=== PATIENT | female | born 1940 | race Caucasian/White ===

== ENCOUNTER → 2018-03-20 | Outpatient (CLI) | payer MEDICARE, OTHER ==
[~2018-03-20] MED LIST: CIPRO500 M1 PO
== END ==
LOC: M.ULTRA 12:27
DX: M79.89 Other specified soft tissue disorders (principal); R60.9 Edema, unspecified; Z86.718 Personal history of other venous thrombosis and embolism

== ENCOUNTER 2018-03-23 20:38 | Emergency (ER) | payer MEDICARE, OTHER ==
[~2018-03-23] VITALS: Ht 152.4 cm; Wt 73.5 kg
[2018-03-23 21:20] LABS: HEMATOCRIT 33.2 % (37.0-47.0); HEMOGLOBIN 10.6 gm/dL (12.0-15.0); MCH 27.7 pg (26.0-34.0); MCV 86.5 fL (80.0-100.0); MPV 7.7 fl. (7.2-11.1); NUCLEATED RBCS 0 /100WBC; PLATELET COUNT* 260 thou/uL (150-400); RBC 3.84 mil/uL (4.20-5.00); RDW-CV 18.7 % (10.5-14.5); WBC 11.3 thou/uL (4.0-11.0)
[2018-03-23 21:30] LABS: CALCIUM 8.6 mg/dL (8.5-10.1); CREATININE 1.3 mg/dL (0.6-1.3); POTASSIUM 4.3 mmol/L (3.5-5.1)
[2018-03-23 21:31] LABS: INFLUENZA A ANTIGEN None Detected (None Detect); INFLUENZA B ANTIGEN None Detected (None Detect)
[2018-03-23 21:35] LABS: ALBUMIN 3.4 g/dL (3.4-5.0); TOTAL BILIRUBIN 0.2 mg/dL (<0.1-1.0); TOTAL PROTEIN 6.5 g/dL (6.4-8.2)
[2018-03-23 21:48] LABS: ABSOLUTE LYMPHOCYTES 1.1 thou/uL (0.8-5.3); ABSOLUTE MONOCYTES 0.3 thou/uL (0.0-1.2); ABSOLUTE NEUTROPHILS 9.8 thou/uL (1.6-8.1); ATYPICAL LYMPHS 1 %
[2018-03-23 21:49] LABS: PLATELET ESTIMATE ADEQUATE
[2018-03-23 22:04] LABS: URINE BILIRUBIN NEGATIVE (Negative); URINE BLOOD TRACE (Negative); URINE CLARITY CLEAR; URINE COLOR YELLOW; URINE GLUCOSE-RANDOM NEGATIVE (Negative); URINE KETONES NEGATIVE (Negative); URINE LEUKOCYTES-REFLEX 1+ (Negative); URINE NITRITE-REFLEX NEGATIVE (Negative); URINE PROTEIN NEGATIVE (Negative); URINE SPECIFIC GRAVITY 1.015 (1.005-1.030); URINE UROBILINOGEN 0.2 E.U./dl (0.2-1.0)
[2018-03-23 22:20] LABS: BACTERIA-REFLEX >30 Many /HPF (None Seen); CASTS None Seen /LPF (None Seen); CRYSTALS None Seen /LPF (None Seen); SQUAMOUS 4-10 Moderate /LPF (0-3); URINE RBC None Seen /HPF (0-2); URINE WBC-REFLEX 6-15 Few /HPF (0-5)
[2018-03-23] MEDS ORDERED: CIPRO500 M1 PO (23:09)
[2018-03-24 00:15] VITALS: BP 134/62
== END 2018-03-24 00:17 | disposition home or self-care (01) ==
LOC: M.ERS 20:38
PROVIDERS: Emergency Medicine
DX: N39.0 Urinary tract infection, site not specified (principal); E78.5 Hyperlipidemia, unspecified; G89.29 Other chronic pain; M79.606 Pain in leg, unspecified; E11.22 Type 2 diabetes mellitus with diabetic chronic kidney disease; N18.9 Chronic kidney disease, unspecified; Z90.49 Acquired absence of other specified parts of digestive tract; Z86.718 Personal history of other venous thrombosis and embolism; Z88.5 Allergy status to narcotic agent

== ENCOUNTER 2018-06-07 08:26 | Inpatient (IN) | payer MEDICARE, OTHER ==
[~2018-06-07] VITALS: Ht 157.5 cm; Wt 73.5 kg
--- NOTE | ~2018-06-07 | PROC ---
[address] [address] PROCEDURE REPORT Name: MURALI BIRD Room: [address] IN .R.#: [id number] Admission: 06/07/18 Attend Phys: Siddhartha Ibanez MD Discharge: 06/13/18 Date of : 38 Report #: [id number] THIS REPORT FOR: //name// For GI report, please see the Provation report in Perceptive 7. By: 0846Medical Records Staff TIFFANIE /DAY
[2018-06-07 08:37] VITALS: BP 115/67
[2018-06-07] MEDS ORDERED: ZYLOPRIM300 MG PO (08:39)
[2018-06-07] MEDS ORDERED: NORVASC5 M1 PO (08:40)
[2018-06-07] MEDS ORDERED: ASPIRIN300 MG RECTAL (08:40)
[2018-06-07] MEDS ORDERED: BAYER CHEWABLE81 MG PO (08:40)
[2018-06-07] MEDS ORDERED: CALCIUM500 MG PO (08:41)
[2018-06-07] MEDS ORDERED: CARVEDILOL3.125 MG PO (08:41)
[2018-06-07] MEDS ORDERED: COZAAR 25 MG TA25 M2 PO (08:42)
[2018-06-07] MEDS ORDERED: NEURONTIN 300300 M1 PO (08:42)
[2018-06-07] MEDS ORDERED: GLUCOPHAGE XR500 MG PO (08:42)
[2018-06-07] MEDS ORDERED: PACERONE 200 M200 M1 PO (08:42)
[2018-06-07] MEDS ORDERED: PROTONIX 20 MG20 M1 PO (08:43)
[2018-06-07] MEDS ORDERED: TYLENOL EXTRA500 MG PO (08:43)
[2018-06-07] MEDS ORDERED: AMBIEN 5 MG TABL5 M1 PO (08:44)
[2018-06-07] MEDS ORDERED: LIPITOR 20 MG T20 M1 PO (08:44)
[2018-06-07 09:07] LABS: HEMATOCRIT 34.3 % (37.0-47.0); HEMOGLOBIN 10.9 gm/dL (12.0-15.0); MCH 26.7 pg (26.0-34.0); MCHC 31.7 g/dL (28.0-37.0); MCV 84.3 fL (80.0-100.0); MPV 8.1 fl. (7.2-11.1); NUCLEATED RBCS 0 /100WBC; PLATELET COUNT* 319 thou/uL (150-400); RBC 4.06 mil/uL (4.20-5.00); RDW-CV 17.6 % (10.5-14.5); WBC 16.7 thou/uL (4.0-11.0)
[2018-06-07 09:15] LABS: ANION GAP 9 mmol/L (7-16); BUN 29 mg/dL (7-18); CHLORIDE 103 mmol/L (98-107); CO2 26 mmol/L (21-32); CREATININE 1.1 mg/dL (0.6-1.3); GLUCOSE 173 mg/dL (70-99); INR 0.9; POTASSIUM 4.4 mmol/L (3.5-5.1); PROTIME 9.5 Seconds (9.20-11.50); SODIUM 138 mmol/L (136-145)
[2018-06-07 09:25] LABS: ALBUMIN 3.5 g/dL (3.4-5.0); ALKALINE PHOSPHATASE 59 U/L (46-116); LIPASE 72 U/L (73-393); NT-PRO BRAIN NAT PEPTIDE 177 pg/mL (<300); SGOT 23 U/L (15-37); SGPT 22 U/L (30-65); TOTAL BILIRUBIN 0.3 mg/dL (<0.1-1.0); TOTAL PROTEIN 6.9 g/dL (6.4-8.2); TROPONIN-I LEVEL <0.06 ng/mL (<0.06)
[2018-06-07 09:42] LABS: INFLUENZA A ANTIGEN None Detected (None Detect); INFLUENZA B ANTIGEN None Detected (None Detect)
[2018-06-07 09:51] LABS: ABSOLUTE BASOPHILS 0.2 thou/uL (0.0-0.2); ABSOLUTE EOSINOPHILS 0.2 thou/uL (0.0-0.7); ABSOLUTE LYMPHOCYTES 0.8 thou/uL (0.8-5.3); ABSOLUTE MONOCYTES 0.5 thou/uL (0.0-1.2)
[2018-06-07 09:52] LABS: HYPOCHROMASIA 1+; MICROCYTES 2+; PLATELET ESTIMATE ADEQUATE
[2018-06-07 09:53] LABS: POLYCHROMASIA 1+
[2018-06-07 09:54] LABS: TARGET CELLS Occasional
[2018-06-07 10:37] LABS: URINE BILIRUBIN NEGATIVE (Negative); URINE BLOOD NEGATIVE (Negative); URINE CLARITY CLEAR; URINE COLOR YELLOW; URINE GLUCOSE-RANDOM NEGATIVE (Negative); URINE KETONES NEGATIVE (Negative); URINE LEUKOCYTES-REFLEX 1+ (Negative); URINE NITRITE-REFLEX NEGATIVE (Negative); URINE PROTEIN NEGATIVE (Negative); URINE UROBILINOGEN 0.2 E.U./dl (0.2-1.0)
[2018-06-07 10:45] LABS: SQUAMOUS 4-10 Moderate /LPF (0-3)
[2018-06-07 10:48] LABS: CASTS None Seen /LPF (None Seen); URINE RBC None Seen /HPF (0-2); URINE WBC-REFLEX 0-5 Rare /HPF (0-5)
[2018-06-07 10:50] LABS: CRYSTALS None Seen /LPF (None Seen)
[2018-06-07 13:03] VITALS: BP 123/57
[2018-06-07 14:00] VITALS: BP 125/58
[2018-06-07 15:30] VITALS: BP 134/56
--- NOTE | 2018-06-07 16:08 | EKG ---
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 06/07/18 1608 D: 02/915 5 Saw Hood MD, FACC /EPI
[2018-06-07 20:53] VITALS: BP 130/60
[2018-06-08] VITALS: BP 90/41
[2018-06-08 04:00] VITALS: BP 103/50
[2018-06-08 04:10] LABS: ABSOLUTE EOSINOPHILS 0.1 thou/uL (0.0-0.7); ABSOLUTE LYMPHOCYTES 2.3 thou/uL (0.8-5.3); ABSOLUTE MONOCYTES 0.8 thou/uL (0.0-1.2); ABSOLUTE NEUTROPHILS 10.4 thou/uL (1.6-8.1); BASOPHILS 0.3 %; EOSINOPHILS 1.1 %; HEMATOCRIT 27.9 % (37.0-47.0); LYMPHOCYTES 16.6 %; MCH 26.6 pg (26.0-34.0); MCHC 30.9 g/dL (28.0-37.0); MCV 85.9 fL (80.0-100.0); MONOCYTES 6.1 %; NUCLEATED RBCS 0 /100WBC; POLYS 75.9 %; RBC 3.24 mil/uL (4.20-5.00); RDW-CV 17.3 % (10.5-14.5); WBC 13.7 thou/uL (4.0-11.0)
[2018-06-08 04:14] LABS: HEMOGLOBIN 8.6 gm/dL (12.0-15.0)
[2018-06-08 04:15] LABS: PLATELET COUNT* 241 thou/uL (150-400)
[2018-06-08 04:18] LABS: CALCIUM 7.8 mg/dL (8.5-10.1); POTASSIUM 3.6 mmol/L (3.5-5.1)
[2018-06-08 08:09] VITALS: BP 107/55
[2018-06-08 11:40] VITALS: BP 100/47
[2018-06-08 16:00] VITALS: BP 124/54
[2018-06-08 21:10] VITALS: BP 139/60
[2018-06-09 00:28] VITALS: BP 106/47
[2018-06-09 04:02] LABS: ABSOLUTE EOSINOPHILS 0.2 thou/uL (0.0-0.7); ABSOLUTE LYMPHOCYTES 2.1 thou/uL (0.8-5.3); ABSOLUTE MONOCYTES 0.7 thou/uL (0.0-1.2); ABSOLUTE NEUTROPHILS 6.3 thou/uL (1.6-8.1); BASOPHILS 0.5 %; EOSINOPHILS 2.6 %; HEMOGLOBIN 8.5 gm/dL (12.0-15.0); LYMPHOCYTES 22.4 %; MCH 26.7 pg (26.0-34.0); MCHC 31.5 g/dL (28.0-37.0); MCV 84.6 fL (80.0-100.0); MONOCYTES 7.8 %; MPV 7.6 fl. (7.2-11.1); NUCLEATED RBCS 0 /100WBC; PLATELET COUNT* 223 thou/uL (150-400); POLYS 66.7 %; RBC 3.19 mil/uL (4.20-5.00); RDW-CV 17.5 % (10.5-14.5); WBC 9.5 thou/uL (4.0-11.0)
[2018-06-09 04:30] LABS: CALCIUM 7.7 mg/dL (8.5-10.1); CREATININE 1.1 mg/dL (0.6-1.3); POTASSIUM 3.9 mmol/L (3.5-5.1)
[2018-06-09 05:07] VITALS: BP 134/60
[2018-06-09 08:33] VITALS: BP 133/61
[2018-06-09 11:30] VITALS: BP 134/58
[2018-06-09 16:00] VITALS: BP 147/65
[2018-06-09] MEDS ORDERED: SYNTHROID25 MC1 PO (19:14)
[2018-06-09 21:00] VITALS: BP 135/61
[2018-06-10 04:35] LABS: ABSOLUTE BASOPHILS 0.1 thou/uL (0.0-0.2); ABSOLUTE EOSINOPHILS 0.3 thou/uL (0.0-0.7); ABSOLUTE LYMPHOCYTES 2.3 thou/uL (0.8-5.3); ABSOLUTE MONOCYTES 0.7 thou/uL (0.0-1.2); BASOPHILS 0.6 %; EOSINOPHILS 4.1 %; HEMATOCRIT 29.3 % (37.0-47.0); HEMOGLOBIN 9.4 gm/dL (12.0-15.0); LYMPHOCYTES 27.4 %; MCH 26.9 pg (26.0-34.0); MCHC 32.1 g/dL (28.0-37.0); MCV 83.6 fL (80.0-100.0); MONOCYTES 8.7 %; MPV 8.4 fl. (7.2-11.1); NUCLEATED RBCS 0 /100WBC; PLATELET COUNT* 247 thou/uL (150-400); POLYS 59.2 %; RDW-CV 17.5 % (10.5-14.5); WBC 8.4 thou/uL (4.0-11.0)
[2018-06-10 04:54] LABS: CALCIUM 8.8 mg/dL (8.5-10.1); CREATININE 1.1 mg/dL (0.6-1.3); POTASSIUM 4.1 mmol/L (3.5-5.1); TOTAL BILIRUBIN 0.3 mg/dL (<0.1-1.0); TOTAL PROTEIN 5.9 g/dL (6.4-8.2)
[2018-06-10 06:07] LABS: ALBUMIN 2.6 g/dL (3.4-5.0)
[2018-06-10 08:30] VITALS: BP 139/62
[2018-06-10 12:00] VITALS: BP 135/58
[2018-06-10 15:50] VITALS: BP 89/55
[2018-06-10 16:05] VITALS: BP 127/60
[2018-06-10 21:00] VITALS: BP 151/67
[2018-06-11] VITALS: BP 106/67
[2018-06-11 04:00] VITALS: BP 125/63
[2018-06-11 08:45] VITALS: BP 137/69
[2018-06-11 11:55] VITALS: BP 106/62
[2018-06-11 15:00] VITALS: BP 136/67
[2018-06-11 20:30] VITALS: BP 114/67
[2018-06-12] VITALS: BP 135/60
[2018-06-12 04:00] VITALS: BP 111/62
[2018-06-12 04:20] LABS: ABSOLUTE EOSINOPHILS 0.1 thou/uL (0.0-0.7); ABSOLUTE LYMPHOCYTES 2.1 thou/uL (0.8-5.3); ABSOLUTE MONOCYTES 0.8 thou/uL (0.0-1.2); ABSOLUTE NEUTROPHILS 5.8 thou/uL (1.6-8.1); BASOPHILS 0.4 %; EOSINOPHILS 0.9 %; HEMATOCRIT 31.4 % (37.0-47.0); HEMOGLOBIN 10.2 gm/dL (12.0-15.0); LYMPHOCYTES 23.7 %; MCH 26.9 pg (26.0-34.0); MCHC 32.4 g/dL (28.0-37.0); MONOCYTES 9.5 %; MPV 8.1 fl. (7.2-11.1); NUCLEATED RBCS 0 /100WBC; PLATELET COUNT* 266 thou/uL (150-400); POLYS 65.5 %; RBC 3.78 mil/uL (4.20-5.00); RDW-CV 17.8 % (10.5-14.5); WBC 8.8 thou/uL (4.0-11.0)
[2018-06-12 04:30] LABS: CALCIUM 8.8 mg/dL (8.5-10.1); CREATININE 1.3 mg/dL (0.6-1.3)
[2018-06-12 05:46] LABS: POTASSIUM 3.1 mmol/L (3.5-5.1)
[2018-06-12 07:45] VITALS: BP 120/65
[2018-06-12 09:14] VITALS: BP 120/65
[2018-06-12 16:52] VITALS: BP 108/59
[2018-06-12 19:50] VITALS: BP 97/46
[2018-06-13 00:59] VITALS: BP 115/62
[2018-06-13 03:42] VITALS: BP 109/57
[2018-06-13 08:30] VITALS: BP 114/53
[2018-06-13] MEDS ORDERED: IRON325 PO (12:32)
[2018-06-13] MEDS ORDERED: VITAMIN B-12500 MCG PO (12:33)
[2018-06-13] MEDS ORDERED: LEVAQUIN 500 M500 M2 PO (12:33)
[2018-06-13 12:35] VITALS: BP 114/53
--- NOTE | 2018-06-16 15:26 | PATH ---
[address] [address] PATHOLOGY RPT PROCEDURE Name: SHANIQUA PICKETT Room: [address] IN M.R.#: [id number] Admission: 06/07/18 Date of : 38 Discharge: 06/13/18 Report #: [id number] Path Case #: [id number] [facility] Accession Number: [id number] . 01 Material submitted: . PART A: SMALL BOWEL BIOPSY FOR IRON DEFICIENCY PART B: MID ASCENDING COLON POLYP . 01 Clinical history: . None provided . 02 Diagnosis: A. Small bowel biopsy for iron deficiency: - Normal duodenal/small intestinal mucosa. . B. Mid ascending colon polyp: - Tubular adenoma, negative for high-grade dysplasia. (JCARLOS:arely; 06/13/2018) QMS/06/13/2018 . 02 Electronically signed: . Chino Nieto MD, Pathologist NPI- [id number] . 01 Gross description: . A. Received in formalin labeled "Shaniqua Pickett, small bowel biopsy for iron deficiency," are 4 segments of anderson soft tissue measuring 1.5 x 0.8 x 0.2 cm in aggregate dimensions and ranging from 0.3 to 0.6 cm in maximum dimension. The specimen is submitted entirely in cassette A1. . B. Received in formalin labeled "Shaniqua Pickett, mid ascending colon polyp," is a 0.5 x 0.4 x 0.4 cm polypoid piece of anderson soft tissue. The margin is inked and the specimen is sectioned perpendicular to the margin and entirely submitted in cassette B1. . (TSD; 06/12/2018) TOB/TOB . 02 Pathologist provided ICD-10: D12.2 . 02 CPT . 878689, [id number] Specimen Comment: Report sent to ,DR PADRON / DR ALBRIGHT Specimen Comment: A duplicate report has been generated due to demographic updates. Performed at: [address] [place] [address] PATHOLOGY RPT PROCEDURE Name: SHANIQUA PICKETT Room: [address] IN ..#: [id number] Admission: 06/07/18 Date of : 38 Discharge: 06/13/18 Report #: [id number] Path Case #: [id number] [address] [facility] [address], [place], [place] [id number] MD Shahid Garcia MD Phone: [phone] Performed at: [address] [address], [place], [place] [id number] MD Chino Nieto MD Phone: [phone]
--- NOTE | 2018-06-17 09:57 | CON ---
[address] [address] CONSULTATION Name: MURALI BIRD Room: [address] IN M.R.#: [id number] Admission: 06/07/18 Attend Phys: Sruthi Ibanez MD Discharge: 06/13/18 Date of : 38 Report #: [id number] THIS REPORT FOR: //name// CC: SRUTHI Ibanez [facility] DATE OF SERVICE: 06/10/2018 REFERRING PHYSICIAN: Sruthi Ibanez M.D. REASON FOR CONSULTATION: Iron-deficiency anemia - evaluate for endoscopic studies. IMPRESSION: 1. Iron-deficiency anemia of uncertain etiology, with symptoms referable to her upper and lower gastrointestinal tract - evaluate for problems related to the same. 2. Coronary artery disease with previous bypass grafting in the past, with no symptoms to suggest angina at this time. 3. Intermittent solid dysphagia to solids without any endoscopic studies of her upper GI tract in the past. 4. Personal history of colonoscopies in the past, but it has been a number of years since her last examination. This was done in [place], [place] and she was told at that time that she would not have to ever have another colonoscopy for screening purposes. I told her that this would be done for diagnostic purposes. She is understanding of the same. 5. Chronic kidney disease, stage 2 to 3. RECOMMENDATIONS: 1. With the patient's underlying history of coronary artery disease and a tendency towards constipation, I recommend that she have her endoscopic studies done as an inpatient as opposed to an outpatient. She would get a bowel preparation over the next 2 days and endoscopic studies of her upper and lower GI tract to be done on Tuesday mid-to-late morning. I have discussed the plans with the patient as well and she is agreeable to the same. 2. We will hold off on placing her on any iron replacement until after she has had her endoscopic studies. She will likely need to be on something as well to keep her bowels moving once she is on iron supplementation. I have discussed those plans with the patient as well and she is agreeable to the same. HISTORY OF PRESENT ILLNESS: The patient is a very pleasant 77-year-old white female with history of coronary artery disease, hypertension, diabetes and chronic kidney disease, who was admitted to the hospital with shaking chills and was thought to have possibly a complicated urinary tract infection[place] [address] CONSULTATION Name: MURALI BIRD Mary Room: [address]#: [id number] Admission: 06/07/18 Attend Phys: Sruthi Ibanez MD Discharge: 06/13/18 Date of : 38 Report #: [id number] problems like this in the past. She was incidentally found to be anemic with hemoglobin in the 8.5-gram range. She has had problems with anemia in the past, but it was after she had a pelvic fracture and this was back in 2016, at which time, she had to have some blood transfusions at that time. She has had previous colonoscopies in the past, last of which was many years ago and she was told at that time she would not ever have to have another colonoscopy. I told this was for screening purposes, but because she is anemic and she has had some bowel issues, she will need to have the same. She has had some intermittent problems with dysphagia for when she feels the food gets stuck and her voice will change because she cannot empty. She has not had to make herself induce vomiting. This is only intermittent in nature. She denies any complaints of any heartburn or ingestion. She is not taking nonsteroidals secondary to her chronic kidney disease. She only takes Tylenol. She denies any complaints of any abdominal pain, but has a tendency towards constipation. She denies any bleeding. No black stools, tarry stools or any blood in stools. She does take aspirin, but is not on any anticoagulants. She is admitted to the hospital for evaluation and treatment. ALLERGIES: CODEINE. MEDICATIONS: Her medications at home include allopurinol, amlodipine, aspirin, calcium, Coreg, Neurontin, Cozaar, Glucophage, Pacerone, Protonix, Tylenol, Lipitor and Ambien. PAST MEDICAL HISTORY: Remarkable for coronary artery disease, previous bypass surgery in the past. She has had history of hypertension, hyperlipidemia, diabetes, chronic leg pain and chronic kidney disease. She has had a pelvic inlet fracture. She has had previous cholecystectomy and appendectomy. She has had previous colonoscopies in the past. SOCIAL HISTORY: The patient never smoked, does not drink. FAMILY HISTORY: Negative for GI malignancies. PHYSICAL EXAMINATION: GENERAL: A pleasant 77-year-old white female who is awake and alert. CARDIOPULMONARY EXAMINATION: Revealed a regular rate and rhythm. LUNGS: Clear. ABDOMEN: Soft and not tender. No rebound or guarding noted. LABORATORY DATA: Her laboratory tests from 06/10/2018 revealed a white count of 8.4, hemoglobin 9.4, platelet count 247,000, MCV is 83.6 and RDW 17.5. She did have microcytic cells and polychromasia. Her sodium is 144, potassium 4.1, chloride 109 and bicarbonate is 29. Her BUN is 12, creatinine 1.1 and GFR is 48. Her total bilirubin is 0.3, alkaline phosphatase is 52, AST 12 [place] 14[place] [address] CONSULTATION Name: UMRALI BIRD Room: [address] [place] [facility]#: [id number] Admission: 06/07/18 Attend Phys: Sruthi Ibanez MD Discharge: 06/13/18 Date of : 38 Report #: [id number] Her albumin is 2.6. Her iron saturation was only 8%. Her ferritin was 25, which is on the low end of normal. Her B12 level was on the low end of normal at 260. Folic acid level was 51.2. Her C-reactive protein on admission was 66.6 and she did not have a sed rate done. CT scan of the abdomen and pelvis was reviewed and revealed moderate stool noted throughout the colon. There is possibly some thickening notable, but it is not particularly obvious. She has nothing to suggest colitis. She has had previous pelvic fractures noted. She does have fat-containing umbilical hernia. She has had lumbar spine fusion with pedicle screws noted and rods at L4-L5. Her CT scan of the chest revealed patchy right lung infiltrate. She has had median sternotomy and rib fractures. DISCUSSION: At the present time, the patient has had some problems with being anemic. She needs to have endoscopic studies and we will proceed with upper and lower endoscopy on Tuesday. She will need 2-day bowel preparations due to her tendency towards constipation. She is agreeable to this plan as well. <ELECTRONICALLY SIGNED> By: Rohan Noland DO 06/17/18 0957 1313 0009Rohan Noland DO /nt
== END 2018-06-13 18:40 | disposition home or self-care (01) | DRG 871 ==
LOC: M.ERS 08:26 → M.3W 11:07 → M.TBA-ER 11:07 → M.3W 13:07
PROVIDERS: Family Medicine; Internal Medicine Gastroenterology; ADMIT Internal Medicine
PROC: 0DJ08ZZ Inspection of Upper Intestinal Tract, Via Natural or Artificial Opening Endoscopic (ICD-10-PCS; principal; 2018-06-12)
PROC: 0DBK8ZZ Excision of Ascending Colon, Via Natural or Artificial Opening Endoscopic (ICD-10-PCS; principal; 2018-06-12)
DX: A41.9 Sepsis, unspecified organism (principal); J15.6 Pneumonia due to other Gram-negative bacteria; N39.0 Urinary tract infection, site not specified; E87.2 Acidosis; K64.4 Residual hemorrhoidal skin tags; D12.2 Benign neoplasm of ascending colon; D50.9 Iron deficiency anemia, unspecified; K57.30 Diverticulosis of large intestine without perforation or abscess without bleeding; R13.14 Dysphagia, pharyngoesophageal phase; N18.3 Chronic kidney disease, stage 3 (moderate); G89.29 Other chronic pain; E89.0 Postprocedural hypothyroidism; I25.10 Atherosclerotic heart disease of native coronary artery without angina pectoris; R31.9 Hematuria, unspecified; E86.0 Dehydration; K59.00 Constipation, unspecified; M79.606 Pain in leg, unspecified; E11.22 Type 2 diabetes mellitus with diabetic chronic kidney disease; E78.5 Hyperlipidemia, unspecified; Z90.49 Acquired absence of other specified parts of digestive tract; Z86.718 Personal history of other venous thrombosis and embolism; Z79.2 Long term (current) use of antibiotics; Z79.899 Other long term (current) drug therapy; Z88.5 Allergy status to narcotic agent; Z87.828 Personal history of other (healed) physical injury and trauma; Z95.1 Presence of aortocoronary bypass graft; Z28.21 Immunization not carried out because of patient refusal

== ENCOUNTER 2019-11-10 18:28 | Emergency (ER) | payer MEDICARE, OTHER ==
[~2019-11-10] VITALS: Ht 152.4 cm; Wt 71.7 kg
[~2019-11-10 18:28] MED LIST changes: +AMBIEN 5 MG TABL5 M1 PO; +ASPIRIN300 MG RECTAL; +BAYER CHEWABLE81 MG PO; +CALCIUM500 MG PO; +CARVEDILOL3.125 MG PO; +COZAAR 25 MG TA25 M2 PO; +GLUCOPHAGE XR500 MG PO; +IRON325 PO; +LEVAQUIN 500 M500 M2 PO; +LIPITOR 20 MG T20 M1 PO; +NEURONTIN 300300 M1 PO; +NORVASC5 M1 PO; +PACERONE 200 M200 M1 PO; +PROTONIX 20 MG20 M1 PO; +SYNTHROID25 MC1 PO; +TYLENOL EXTRA500 MG PO; +VITAMIN B-12500 MCG PO; +ZYLOPRIM300 MG PO
[2019-11-10 18:33] VITALS: BP 163/79
[2019-11-10] MEDS ORDERED: ELIQUIS5 MG PO (18:40)
== END 2019-11-10 19:17 | disposition home or self-care (01) ==
LOC: M.ERS 18:28
DX: S60.222A Contusion of left hand, initial encounter (principal); G89.29 Other chronic pain; E78.5 Hyperlipidemia, unspecified; E11.22 Type 2 diabetes mellitus with diabetic chronic kidney disease; N18.9 Chronic kidney disease, unspecified; Z88.5 Allergy status to narcotic agent; Z90.49 Acquired absence of other specified parts of digestive tract; W54.8XXA Other contact with dog, initial encounter; Y93.89 Activity, other specified; Y92.89 Other specified places as the place of occurrence of the external cause; Y99.8 Other external cause status

== ENCOUNTER 2020-07-09 12:38 | Emergency (ER) | payer MEDICARE, OTHER ==
[~2020-07-09] VITALS: Ht 154.9 cm; Wt 72.6 kg
[~2020-07-09 12:38] MED LIST changes: +ELIQUIS5 MG PO
[2020-07-09 12:54] LABS: URINE BLOOD NEGATIVE (Negative); URINE CLARITY CLEAR; URINE COLOR YELLOW; URINE GLUCOSE-RANDOM NEGATIVE (Negative); URINE KETONES TRACE (Negative); URINE LEUKOCYTES-REFLEX NEGATIVE (Negative); URINE NITRITE-REFLEX NEGATIVE (Negative); URINE PROTEIN NEGATIVE (Negative); URINE SPECIFIC GRAVITY >= 1.030 (1.005-1.030); URINE UROBILINOGEN 0.2 E.U./dl (0.2-1.0)
[2020-07-09 12:56] LABS: ICTOTEST (BILI CONFIRMATORY) Negative (Negative); URINE BILIRUBIN 1+ (Negative)
[2020-07-09] MEDS ORDERED: AMOX TR-K CLV1 EAC4 PO (13:03)
[2020-07-09 13:09] LABS: ABSOLUTE BASOPHILS 0.1 thou/uL (0.0-0.2); ABSOLUTE EOSINOPHILS 0.1 thou/uL (0.0-0.7); ABSOLUTE LYMPHOCYTES 1.6 thou/uL (0.8-5.3); ABSOLUTE MONOCYTES 0.4 thou/uL (0.0-1.2); ABSOLUTE NEUTROPHILS 3.6 thou/uL (1.6-8.1); EOSINOPHILS 1.2 %; HEMATOCRIT 42.1 % (37.0-47.0); HEMOGLOBIN 13.7 gm/dL (12.0-15.0); LYMPHOCYTES 27.8 %; MCH 31.4 pg (26.0-34.0); MCHC 32.6 g/dL (28.0-37.0); MCV 96.1 fL (80.0-100.0); MONOCYTES 6.8 %; MPV 7.5 fl. (7.2-11.1); NUCLEATED RBCS 0 /100WBC; PLATELET COUNT* 255 thou/uL (150-400); POLYS 63.2 %; RBC 4.38 mil/uL (4.20-5.00); RDW-CV 15.9 % (10.5-14.5); WBC 5.6 thou/uL (4.0-11.0)
[2020-07-09 13:18] LABS: CALCIUM 9.2 mg/dL (8.5-10.1); CREATININE 1.6 mg/dL (0.6-1.3); POTASSIUM 4.8 mmol/L (3.5-5.1)
[2020-07-09 13:26] LABS: APTT 28.8 Seconds (25.0-31.3)
[2020-07-09 13:28] LABS: ALBUMIN 3.8 g/dL (3.4-5.0); TOTAL BILIRUBIN 0.5 mg/dL (<0.1-1.0); TOTAL PROTEIN 7.3 g/dL (6.4-8.2)
[2020-07-09 14:57] VITALS: BP 123/58
--- NOTE | 2020-07-09 16:17 | EKG ---
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
== END 2020-07-09 14:58 | disposition home or self-care (01) ==
LOC: M.ERS 12:38
PROVIDERS: Family Medicine
DX: R53.1 Weakness (principal); Z20.822 Contact with and (suspected) exposure to COVID-19; E11.22 Type 2 diabetes mellitus with diabetic chronic kidney disease; N18.9 Chronic kidney disease, unspecified; G89.29 Other chronic pain; E78.5 Hyperlipidemia, unspecified; Z90.49 Acquired absence of other specified parts of digestive tract; Z86.718 Personal history of other venous thrombosis and embolism; Z88.5 Allergy status to narcotic agent